=== PATIENT | male | born 1965 | race Caucasian/White ===

== ENCOUNTER 2018-07-24 20:21 | Emergency (ER) | payer OTHER ==
[~2018-07-24 20:21] MED LIST: Atropine Sulfate 1 mg/10 ml Syringe ONE; Calcium Chloride 1 GM/10 ML Abboject SYRINGE ONE; EPINEPHrine 1 MG/10 ML Abboject SYRINGE ONE; EPINEPHrine 1 MG/ML AMP ONE; Sodium Bicarb 50 MEQ/50 ML Abboject 8.4% SYRINGE ONE; Sodium Chloride 0.9% 1,000 ML BAG ONE
[2018-07-24] MEDS ORDERED: Sodium Chloride 0.9% 2,000 ML ONE (20:36)
[2018-07-24] MEDS ORDERED: EPINEPHrine 1 MG/ML AMP ONE (20:36)
[2018-07-24] MEDS ORDERED: Albuterol Sulfate 2.5 mg/0.5 ml Neb ONE (20:49)
[2018-07-24] MEDS ORDERED: Atropine Sulfate 1 mg/10 ml Syringe ONE (21:04)
[2018-07-24 21:12] LABS: ALT (SGPT) 41 U/L (8-55); AST (SGOT) 55 U/L (5-34); Alkaline Phosphatase 169 U/L (40-150); Anion Gap 26 mmol/L (10-20); BUN (Urea Nitrogen) 16 mg/dL (8.4-25.7); Bilirubin, Total 0.6 mg/dL (0.2-1.2); Calc. Creatinine Clearance 0 mL/min (70-130); Calcium 9.4 mg/dL (7.8-10.44); Carbon Dioxide 10 mmol/L (22-29); Chloride 109 mmol/L (98-107); Estimated GFR-MDRD 62; Globulin 2.9 g/dL (2.4-3.5); Glucose 385 mg/dL (70-105); Potassium 5.3 mmol/L (3.5-5.1); Protein, Total 5.9 g/dL (6.0-8.3); Sodium 140 mmol/L (136-145)
[2018-07-24 21:13] LABS: CKMB 2.6 ng/mL (0-6.6); Troponin I 0.021 ng/mL (< 0.028)
[2018-07-24 21:14] LABS: #Basophils 0.1 thou/uL (0.0-0.2); #Lymphocytes 3.3 thou/uL (1.20-3.40); #Monocytes 0.9 thou/uL (0.11-0.59); #Neutrophils 5.2 thou/uL (1.40-6.50); %Basophils 1.3 % (0.0-1.0); %Eosinophils 0.5 % (0.0-10.0); %Lymphocytes 34.3 % (21.0-51.0); %Monocytes 9.8 % (0.0-10.0); %Neutrophils 54.1 % (42.0-75.0); Hemoglobin 10.2 g/dL (14.0-18.0); Mean Corpuscular HGB CONC 28.2 g/dL (32.0-36.0); Mean Corpuscular Hemoglobin 21.8 pg (27.0-31.0); Mean Corpuscular Volume 77.4 fL (78.0-98.0); Mean Platelet Volume 7.4 fL (7.4-10.4); Platelet Count 286 thou/uL (130-400); RBC Distribution Width 17.6 % (11.5-14.5); Red Blood Cell (RBC) Count 4.68 mill/uL (4.70-6.10); White Blood Cell (WBC) Count 9.5 thou/uL (4.8-10.8)
[2018-07-24] MEDS ORDERED: Insulin Regular 300 UNITS/3 ML VIAL ONE (21:23)
--- NOTE | 2018-07-24 21:46 | RAD ---
PORTABLE AP CHEST X-RAY 07/24/18 HISTORY: CPR in progress. COMPARISON: 03/28/16. FINDINGS: Endotracheal tube is noted in place with the tip overlying the T3 vertebral body and above the level of the geovany. Nasogastric tube is noted in place which courses to the left upper quadrant and with t he tip overlying the expected location of the proximal body of the stomach. There is increased perihi lar interstitial and alveolar opacities which may be related to pulmonary edema. No pleural effusion or pneumothorax is seen on this exam. The cardiac silhouette is within normal limits. Pacing device o verlies the right chest. IMPRESSION: 1. Mild increased perihilar interstitial and alveolar opacities which may be related to mild pul monary edema. 2. Endotracheal tube and nasogastric tubes in place. POS: VANESA
[2018-07-24 21:59] LABS: Base Excess-Venous -14.5 mmol/L (0 (+/- 2.5)); Bicarbonate (HCO3v) 16.8 mmol/L (1.0-85.0); CO2 Tension (PvCO2) 70.2 mmHg (41.0-51.0); Calcium, Ionized 1.31 mmol/L (1.12-1.32); Hemoglobin - Calc 9.6 g/dL (12.0-18.0); O2 Tension (PvO2) 58.2 mmHg (35.0-45.0); Potassium 5.2 mmol/L (3.4-4.7); pH (Venous) 6.988 (7.35-7.45); vO2 Saturation-calc 71.9 % (94-98)
[2018-07-24 22:22] LABS: Phencyclidine (PCP) Not Detected (NotDetected); THC/Cannabinoid Screen Detected (NotDetected)
[2018-07-24 22:23] LABS: Amphetamine Not Detected (NotDetected); Barbiturates Screen Not Detected (NotDetected); Benzodiazepine Screen Not Detected (NotDetected); Cocaine Metabolite Screen Detected (NotDetected); Medtox Control Line Valid? VALID (VALID); Methadone Not Detected (NotDetected); Methamphetamine Not Detected (NotDetected); Opiate Screen Not Detected (NotDetected); Oxycodone Screen Not Detected (NotDetected); Tricyclic Screen Not Detected (NotDetected)
[2018-07-24] MEDS ORDERED: Dextrose 5% in Water 250 ML ONE (22:47)
[2018-07-24 23:58] LABS: Bilirubin Negative (Negative); Blood, Urine Moderate (Negative); Clarity Clear (Clear); Glucose, Urine (Dipstick) >=1000 mg/dL (Negative); Leukocyte Negative (Negative); Nitrite Negative (Negative); Protein, Urine (Dipstick) > or equal to 300 mg/dL (Neg-Trace); Specific Gravity, Urine 1.025 (1.005-1.030); Urobilinogen 0.2 mg/dL (0.2-1.0)
--- NOTE | 2018-07-25 08:10 | ADD-ER ---
ER ADDENDUM DATE OF SERVICE: 07/24/2018 Please refer to the patient's electronic medical record and code blue flow sheet for further details of his visit. In summary, the patient presents with CPR in progress, having been found unresponsive at his home. Raine escobedo reportedly brought his daughter home from work, and had been with her until just few minutes prior to being found unresponsive. He has not been complaining of any medical issues during the day accord ing to his family. On arrival, the patient was intubated with CPR in progress. EMS reported on init ial rhythm of asystole. They state that after giving epinephrine and beginning CPR, they were able t o obtain a brief pulse, which was bradycardic. They attempted external pacing but were unable to obt ain capture and his rhythm degenerated and his pulse was lost. On arrival, he only had pulses with C NJ, which was performed by an external device. Placement of the airway was confirmed with direct vis ualization. Breath sounds were present bilaterally on arrival. He had no heart sounds initially. C NJ was continued and ACLS protocols were followed. The patient responded to initial measures and reg ained a pulse for a brief period of time. This was transient, however, the patient again became puls eless requiring resumption of CPR. Attempts were made to discover the cause of his initial arrest an d reverse any potentially reversible causes. This was done in multiple ways with various medications . Please see the code blue flow sheet for details of medication administration. This did include ep inephrine, atropine, calcium, bicarbonate, and IV fluids. Following the initial return of spontaneou s circulation, an EKG was obtained which showed sinus tachycardia with bifascicular block versus vent ricular tachycardia. The patient was given amiodarone bolus and started on a drip because of this. I later favored him to be in sinus tachycardia and the amiodarone was discontinued. After a second i nterval of CPR, the patient again regained spontaneous circulation. He was initiated on epinephrine drip and maintained his pulse and blood pressure for some time on this. However, after some time, th e patient became bradycardic once again. This failed to respond to atropine and additional bolus of epinephrine. External pacemaker was attempted with good capture at 200 milliamps with a rate of 100 beats per minute. This resulted in palpable pulses and measurable blood pressure. When the NG tube was inserted, it was noted that the patient had gross blood approximately [address] omach. Later, just prior to discharge, a rectal temperature was performed, which showed gross blood in his rectum as well. After the NG tube was placed and blood was discovered, the patient was given uncrossmatched emergency release blood given concern for acute GI bleeding as the possible precipitan t of his arrest. Labs were obtained and review of those revealed some concern for possible diabetic ketoacidosis as well, the patient was given bolus of insulin prior to transfer. I discussed this eloise e with nurse practitioner, Arash, who accepted transfer. I discussed the case again with Dr. Annemarie llanes, just prior to the patient's transport with an update of his findings and condition. The family w as updated throughout his resuscitation. They were allowed to visualize the patient, but did not wan t to remain in the room for an extended period. At some point during his resuscitation, patient was found to have drug paraphernalia and his belongings. The family confirmed that he does have a histor y of drug use, though they are unsure what drugs he uses. This may certainly have contributed to his arrest. The patient was transported via air ambulance given the emergent nature of his condition. Family is aware of his poor prognosis in serious condition. All their questions were answered to thi s point. The patient is in critical condition at the time of transfer.
== END 2018-07-24 21:43 | disposition short-term general hospital (02) ==
LOC: NAV ERS 20:21
DX: I46.9 Cardiac arrest, cause unspecified (principal); K92.2 Gastrointestinal hemorrhage, unspecified; J96.90 Respiratory failure, unspecified, unspecified whether with hypoxia or hypercapnia; R00.1 Bradycardia, unspecified
CPT/HCPCS: 36416; 36430; 36556; 51702; 71045; 80053; 80306; 82330; 82553; 82803; 84484; 85025; 86850; 86900; 86901; 92950; J0171; J0282; J0461; J1815; J7050; J7070; J7611; P9016